=== PATIENT | female | born 1980 | race Caucasian/White ===

== ENCOUNTER 2020-10-26 20:27 | Emergency (ER) | payer MEDICAID ==
[~2020-10-26] VITALS: Ht 160 cm; Wt 68.2 kg
[~2020-10-26 20:27] MED LIST: FAMO40OR4 PO; NO HOME MEDS; ONDA4TAB59 PO
[2020-10-26 20:40] VITALS: BP 122/86
[2020-10-26] MEDS ORDERED: proparacaine 0.5% ophthalmic drops 15ml RIGHTEYE ONE (20:50)
--- NOTE | 2020-10-26 22:20 | NUR ---
PT SELF ADMIN MORE DROPS OF PURICAINE WITH SOME RELIEF, NOW ABLE TO OPEN HER EYES AND PERFORM VISUAL ACUITY
--- NOTE | 2020-10-26 22:54 | NUR ---
pt is in the room, cursing and yelling out, she is kicking equiptment in the room, loud crashing is heard by staff and other patients, CRN is made aware
--- NOTE | 2020-10-26 22:55 | NUR ---
CARLOS ALBERTO went into room, pt complains that I took the medication out of the room, CARLOS ALBERTO lets her know that this is a dangerous medication if used incorrectly, he calmly asks that she stop yelling and cussing, and that she not kick at our equiptment, she told him that she was going to continue to damage equiptment if not seen right this second
--- NOTE | 2020-10-26 22:57 | NUR ---
pt and her robotics mechanic left the ER
== END 2020-10-26 22:59 | disposition left against medical advice (07) ==
LOC: ER 20:28
DX: H57.10 Ocular pain, unspecified eye (principal); Z53.21 Procedure and treatment not carried out due to patient leaving prior to being seen by health care provider